=== PATIENT | male | born 2005 | race African-American/Black ===

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

== ENCOUNTER 2024-01-02 10:34 | Emergency (ER) | payer OTHER ==
[2024-01-02 10:38] VITALS: TEMP 97.9
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
[2024-01-02 12:09] LABS: Appearance,Urine Clear (Clear); Bilirubin,Urine Negative (Negative); Blood,Urine Negative (Negative); Color,Urine Colorless; Glucose,Urine (UA) Negative (Negative); Ketones,Urine Negative (Negative); Leukocyte Esterase,Urine Negative (Negative); Nitrite,Urine Negative (Negative); Protein,Urine Negative (Negative); Specific Gravity,Urine 1.003 (1.001-1.035); Urobilinogen,Urine <2.0 mg/dL (<2.0)
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
[2024-01-02 12:58] VITALS: BP 118/66; PULSE 72; RESP 18
== END 2024-01-02 13:38 | disposition home or self-care (01) ==
LOC: EC 10:34
DX: S76.011A Strain of muscle, fascia and tendon of right hip, initial encounter (principal); S46.911A Strain of unspecified muscle, fascia and tendon at shoulder and upper arm level, right arm, initial encounter; F17.200 Nicotine dependence, unspecified, uncomplicated; V13.9XXA Unspecified pedal cyclist injured in collision with car, pick-up truck or van in traffic accident, initial encounter; Y92.410 Unspecified street and highway as the place of occurrence of the external cause; Y93.55 Activity, bike riding
CPT/HCPCS: 72100; 73502; 81003; 99284

== ENCOUNTER 2024-03-09 00:35 | Emergency (ER) | payer OTHER ==
[2024-03-09 01:55] VITALS: RESP 18
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
[2024-03-09] MEDS: ACET/COD 300 MG/30 MG STARTER PACK 6 TAB BTL PO STA (02:57)
[2024-03-09] MEDS: IBUPROFEN 600 MG STARTER PACK 4 TAB BTL PO STA (02:57)
[2024-03-09 03:05] VITALS: BP 112/58; PULSE 85; TEMP 97.6
== END 2024-03-09 03:00 | disposition home or self-care (01) ==
LOC: EC 00:35
DX: S02.2XXA Fracture of nasal bones, initial encounter for closed fracture (principal); F17.200 Nicotine dependence, unspecified, uncomplicated; Y00.XXXA Assault by blunt object, initial encounter; Y92.410 Unspecified street and highway as the place of occurrence of the external cause
CPT/HCPCS: 70450; 70486; 72125; 99284

== ENCOUNTER 2024-03-13 12:47 | Emergency (ER) | payer OTHER ==
[2024-03-13 13:05] VITALS: RESP 18
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
[2024-03-13] MEDS: ACET/COD 300 MG/30 MG STARTER PACK 6 TAB BTL PO STA (14:34)
[2024-03-13] MEDS: DEXAMETHASONE SOD PHOSPHATE 10 MG/ML 1 ML VIAL IM STA (14:34)
[2024-03-13] MEDS: IBUPROFEN 600 MG STARTER PACK 4 TAB BTL PO STA (14:34)
[2024-03-13] MEDS: KETOROLAC 15 MG/ML 1 ML VIAL IM STA (14:35)
[2024-03-13 14:53] VITALS: BP 122/68; PULSE 70; TEMP 98.1
== END 2024-03-13 14:54 | disposition home or self-care (01) ==
LOC: EC 12:47
DX: S02.2XXA Fracture of nasal bones, initial encounter for closed fracture (principal); R51.9 Headache, unspecified; F17.200 Nicotine dependence, unspecified, uncomplicated; Y04.8XXA Assault by other bodily force, initial encounter
CPT/HCPCS: 99284; 96372 ×2; J1100; J1885